=== PATIENT | female | born 1985 | race African-American/Black ===

== ENCOUNTER → 2016-08-29 | Outpatient (CLI) | payer MEDICAID ==
[~2016-08-29] MED LIST: IBUP600T26 PO; PRENTAB13 PO
== END ==
LOC: M OUTALCOH 08:23
PROVIDERS: ATTEND Psychiatry & Neurology Psychiatry
DX: F10.10 Alcohol abuse, uncomplicated (principal)

== ENCOUNTER 2016-09-26 09:00 | Outpatient (RCR) | payer MEDICAID | END 2016-10-04 | LOC: M OUTALCOH 09:00 | PROVIDERS: ATTEND Psychiatry & Neurology Psychiatry | DX: F12.10 Cannabis abuse, uncomplicated (principal); F17.210 Nicotine dependence, cigarettes, uncomplicated ==

== ENCOUNTER → 2016-09-29 | Outpatient (REF) | payer OTHER | LOC: M LAB REF 09:34 | PROVIDERS: ATTEND Physician Assistant Medical | DX: R21 Rash and other nonspecific skin eruption (principal) ==

== ENCOUNTER 2016-10-30 10:00 | Outpatient (RCR) | payer MEDICAID ==
[~2016-10-30 10:00] MED LIST changes: +IBUP-1022 PO; -IBUP600T26 PO; -PRENTAB13 PO; +PRENTAB20 PO
== END 2016-11-03 ==
LOC: M OUTALCOH 10:00
PROVIDERS: ATTEND Psychiatry & Neurology Psychiatry
DX: F12.10 Cannabis abuse, uncomplicated (principal); F17.200 Nicotine dependence, unspecified, uncomplicated

== ENCOUNTER 2017-02-28 20:21 | Emergency (ER) | payer MEDICAID, OTHER ==
[~2017-02-28] VITALS: Ht 154.9 cm; Wt 86.4 kg
[2017-02-28] MEDS ORDERED: PROAAER10 INH (20:28)
[2017-02-28] MEDS ORDERED: IPRATROPIUM 0.5MG/ALBUTEROL 2.5MG INH SOL UD 3ML (DUONEB)(J7620) NEB ONE (23:00)
[2017-02-28 23:03] LABS: BASO # 0.1 10^3/uL (0.0-0.2); BASO % 0.3 % (0.0-1.0); EOS % 0.3 % (0.0-3.0); IMMATURE GRANULOCYTE % 0.4 % (0-0); LYMPH # 2.3 10^3/uL (1.5-4.5); LYMPH % 14.7 % (24.0-44.0); MEAN CORPUSCULAR HEMOGLOBIN 25.9 pg (27.0-33.0); MEAN CORPUSCULAR HGB CONC 32.6 g/dl (32.0-36.5); MEAN CORPUSCULAR VOLUME 79.6 fl (80.0-96.0); MONO # 1.1 10^3/uL (0.0-0.8); MONO % 7.4 % (0.0-5.0); NEUTROPHILS # 11.9 10^3/uL (1.8-7.7); NEUTROPHILS % 76.9 % (36.0-66.0); PLATELET COUNT, AUTOMATED 380 10^3/uL (150-450); RED CELL DISTRIBUTION WIDTH 14.2 % (11.5-14.5); WHITE BLOOD COUNT 15.4 10^3/uL (4.0-10.0)
[2017-02-28 23:29] LABS: ANION GAP 7 MEQ/L (8-16); BLOOD UREA NITROGEN 13 MG/DL (7-18); CALCIUM LEVEL 9.3 MG/DL (8.5-10.1); CARBON DIOXIDE LEVEL 25 MEQ/L (21-32); CHLORIDE LEVEL 106 MEQ/L (98-107); CREATININE FOR GFR 0.99 MG/DL (0.55-1.02); GLOMERULAR FILTRATION RATE > 60.0 (>60); GLUCOSE, FASTING 95 MG/DL (70-105); POTASSIUM SERUM 4.1 MEQ/L (3.5-5.1); SODIUM LEVEL 138 MEQ/L (136-145)
[2017-02-28] MEDS ORDERED: AZITHROMYCIN 250 MG TAB PO ONE (23:45)
[2017-02-28] MEDS ORDERED: AZIT-12 PO (23:49)
[2017-02-28 23:53] VITALS: BP 125/81
--- NOTE | 2017-03-01 07:57 | REP ---
PA and lateral chest: There are no comparisons. The lung torres are clear. The cardiac size is normal The susan, mediastinum, and bony thorax are unremarkable. Impression: Negative PA and lateral chest. No Signed by Anderson Vasquez MD 03/01/2017 07:49 A
== END 2017-02-28 23:56 | disposition home or self-care (01) ==
LOC: M ED 20:21
DX: J18.9 Pneumonia, unspecified organism (principal); Z72.0 Tobacco use

== ENCOUNTER → 2017-07-20 | Outpatient (REF) | payer OTHER ==
[2017-07-20 11:33] LABS: INFLUENZA A AMPLIFICATION NEGATIVE (NEGATIVE); INFLUENZA B AMPLIFICATION NEGATIVE (NEGATIVE)
== END ==
LOC: M LAB REF 10:33
DX: Z11.59 Encounter for screening for other viral diseases (principal)